=== PATIENT | male | born 1965 | race Caucasian/White ===

== ENCOUNTER 2018-05-05 09:29 | Emergency (ER) | payer OTHER ==
[~2018-05-05] VITALS: Ht 170.2 cm; Wt 88.5 kg
[2018-05-05] MEDS ORDERED: LISINOPRIL10 MG (10:43)
[2018-05-05] MEDS ORDERED: HYDROCHLOROTH12.5 M1 (10:43)
[2018-05-05] MEDS ORDERED: METFORMIN HCL500 M1 (10:45)
== END 2018-05-05 14:54 | disposition home or self-care (01) ==
LOC: ER 09:29
DX: G89.11 Acute pain due to trauma (principal); M54.2 Cervicalgia; R51 Headache; I10 Essential (primary) hypertension; S13.4XXS Sprain of ligaments of cervical spine, sequela; X50.0XXS Overexertion from strenuous movement or load, sequela